=== PATIENT | male | born 1985 | race African-American/Black ===

== ENCOUNTER 2025-01-05 10:24 | Outpatient (AMB) | payer BC, SELFPAY ==
--- OUTSIDE RECORDS SUMMARY | 2024-11-26 05:00 | XMS_ITS ---
Author Organization [facility] Address [address] [facility] [address] [place] [address] Care Team Providers Care Plastic Process Technician Name Role Phone KATHRYN MCKINNON Primary Care Provider Arcenio Pope Unavailable [phone] Allergies Allergen (clinical drug ingredient) Drug/Non Drug Allergy documented on EMR Reaction Allergy Type Onset Date Status Seasonal IC Unknown Drug Allergy Activ e Results Component Value Reference Range Notes CBC with Diff, Platelet, NLR -[id number] Reviewed date:01/04/2025 09:17:35 AM Interpretation: Performing Lab:[facility], [address] [facility], [place], Phone - [phone], Director - Kevin Notes/Report: WBC 8.7 3.4-10.8 [...] 0.0-0.1 x10E3/uL Lipid Panel With LDL/HDL Rat [id number] Reviewed date:01/04/2025 09:17:41 AM Interpretation: Performing Lab:[facility] [place], [address] [facility], [place], Phone - [phone], Director - Kevin Notes/Report: Cholesterol, Total 144 100-199 mg/dL Triglycerides 143 0-149 mg/dL HDL Cholesterol 60 >39 mg/dL VLDL Cholesterol Martin 24 5-40 mg/dL LDL Chol Calc (NIH) 60 0-99 mg/dL LDL/HDL Ratio 1.0 0.0-3.6 ratio LDL/HDL Ratio Men Women 1/2 Avg.Risk 1.0 1.5 Avg.Risk 3.6 3.2 2X Avg.Risk 6.2 5.0 3X Avg.Risk 8.0 6.1 Comp. Metabolic Panel (13)-[id number] Reviewed date:01/04/2025 09:17:48 AM Interpretation: Performing Lab:[facility], [address] [facility], [place], Phone - [phone], Director - Kevin Notes/Report: Glucose 111 70-99 [...] 2 Sebaceous cyst (L72. 3) Referral Organization [facility] Referring Provider First Name Arcenio Referring Provider Last Name Luxarpan Referring Provider Speciality Internal M edicine Referred Provider Specialty Surgery General Notes Please call the the medical center ent to schedule the appointment, Encounter created [...] 11/26/2024 Encounters Encounter Location Date Provider Diagnosis [facility] [address] [address] 11/26/2024 Arcenio Pope Encounter for screen ing [...] Up: 3 Weeks cpe, Reas on: Provider Name:Arcenio Pope, 1 08:30:00 AM, [address] [place] [address], [phone], Progress Notes * JOHN LorneOB:1985 (39 yo M)Acc No.[id number]:11/26/2024 Progress Notes Patient: Gil MOORE Provider: Evan Pope, :1985 A ge:39 Y S ex:Male Date:11/26/2024 Phone: Address:[address] [place], [place] [id number] Pcp:KATHRYN MCKINNON Subjective: * Chief Complaints: * [...] is denying any injury. 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 He smokes 4 cigarettes a day and also smokes marijuana after work. He does not have any anxiety or depression. He does not have any GI or symptoms. * ROS: G eneral/Constitutional: Patient complaining of c ystic mass on the forehead. O [employer] G o[facility]. C hange in appetite d [...] in his own gym. 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 * Medications: N one * Allergies: S [...] MALE GENITOURINARY: _ _. PODIATRIC: N ormal. Rn Care Transition _ ____. Assessment: * Assessment: 1. S [...] disorders L AB: CBC with Diff, Platelet, NLR-[id number] (Collection Date & Time - 01/03/2025 01:36 PM) L AB: Lipid Panel With LDL/HDL Ratio-[id number] (Collection Date & Time - 01/03/2025 01:36 PM) L AB: Comp. Metabolic Panel [id number] (Collection Date & Time - 01/03/2025 01:36 PM) 3. E pidermal cyst I maging: US Soft Tissue Head Neck Referral To:Surgery Reason:for had large cystic lesion to be aspirated of Please evaluate and treat * Follow Up: 3 Weeks cpe * Images: * Electronic signature of Karel Pope on 01/05/2025 at 12:55 PM EDT Sign off status: Pending * Provider: Evan Pope, Date: 0 11/26/2024 Generated for Mayte johnson/Yolande/Panfiloitting on: 01/05/2025 12:55 PM EDT History and Physical Notes * [...] is denying any injury. 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
--- NOTE | 2025-01-05 10:34 | A.OFFVIS_ITS ---
Vital Signs 01/05/25 10:40 Height 6 ft 1 in Weight 176 lb 8 oz BMI 23.3 Intake Visit Reasons: sebaceaous cyst Intake Note: This patient was referred by Arcenio Pope for an assessment for sebaceous cyst on the forehead. Pt c/o; reports no pain, reports no dizziness, reports no headaches. Supervisor Electronic Coils Required: No Accompanied by: Self / Same As Patient Allergies Seasonal Allergies Allergy (Verified 01/05/25 10:41) Unknown Medication List - Last Reconciled 01/05/25 by Luis Alberto Dudley MD No Known Home Meds HPI HPI sebaceaous cyst: Details: 39-year-old male referred for a lump on her forehead. He said he has noticed this for about 4 years now. This has been increasing in size. He denies any skin changes. In view of the increased in size, he wants this removed. [facility] Medical History (Updated 01/05/25 @ 10:47 by Luis Alberto Dudley MD) Lipoma of forehead Surgical History No pertinent past surgical history Social History Patient Tobacco Use Status: Tobacco use Unknown Review of Systems Const Denies chills and Denies fever(s) Card Denies chest pain, Denies dyspnea and Denies dyspnea on exertion Resp Denies cough, Denies dyspnea and Denies dyspnea on exertion GI Denies hematochezia and Denies change in bowel habits Denies hematuria and Denies difficulty urinating Musc Denies back pain and Denies limited range of motion Neuro Denies focal weakness and Denies convulsions Psych Denies depression and Denies mood swings Physical Exam Const General: comfortable and no acute distress Orientation/consciousness: patient oriented x3 HEENT Other: Lipomatous mass on the forehead, well-defined, mobile, about 4 cm in diameter Neck Neck: Yes no lymphadenopathy Resp Auscultation: clear to auscultation bilaterally Cardio Rhythm: regular rhythm GI Palpation (GI): Soft to palpation, nontender and no guarding Neuro General: patient oriented x3 Assessment & Plan Assessment & Plan (1) Lipoma of forehead: Code(s): D17.0 - Benign lipomatous neoplasm of skin and subcutaneous tissue of head, face and neck Category: Medical Plan I explained the technique of excision of the forehead lipoma under local anesthesia. I reviewed the risks including but not limited to bleeding, infections, scar formation and poor healing, as well as the benefits and alternatives He says he understands and wants to proceed. He will be brought back in for excision of the forehead lipoma under local anesthesia in the office on his next visit. He understands what to expect postoperatively. Coding Level of Care Code New Pt Level 3 (60496) Diagnoses Lipoma of forehead D17.0
[2025-01-05 10:40] VITALS: BMI 23.3
--- OUTSIDE RECORDS SUMMARY | 2025-01-05 12:55 | XMS_ITS | Patient Health Record ---
Author Organization [facility] Address [address] [facility] [address] [place] [address] Care Team Providers Care Pediatric Dietician Name Role Phone KATHRYN MCKINNON Primary Care Provider LuxarpanArcenio Unavailable [phone] Allergies Allergen (clinical drug ingredient) Drug/Non Drug Allergy documented on EMR Reaction Allergy Type Onset Date Status Seasonal IC Unknown Drug Allergy Activ e Results Component Value Reference Range Notes CBC with Diff, Platelet, NLR -[id number] Reviewed date:01/04/2025 09:17:35 AM Interpretation: Performing Lab:[facility], [address] [facility], [place], Phone - [phone], Director - Kevin Notes/Report: WBC 8.7 3.4-10.8 [...] 0.0-0.1 x10E3/uL Lipid Panel With LDL/HDL Rat [id number] Reviewed date:01/04/2025 09:17:41 AM Interpretation: Performing Lab:[facility], [address] [facility], [place], Phone - [phone], Director - Kevin Notes/Report: Cholesterol, Total 144 100-199 mg/dL Triglycerides 143 0-149 mg/dL HDL Cholesterol 60 >39 mg/dL VLDL Cholesterol Martin 24 5-40 mg/dL LDL Chol Calc (NIH) 60 0-99 mg/dL LDL/HDL Ratio 1.0 0.0-3.6 ratio LDL/HDL Ratio Men Women 1/2 Avg.Risk 1.0 1.5 Avg.Risk 3.6 3.2 2X Avg.Risk 6.2 5.0 3X Avg.Risk 8.0 6.1 Comp. Metabolic Panel (13)-[id number] Reviewed date:01/04/2025 09:17:48 AM Interpretation: Performing Lab:[facility], [address] [facility], [place], Phone - [phone], Director - Kevin Notes/Report: Glucose 111 70-99 [...] 2 Sebaceous cyst (L72. 3) Referral Organization [facility] Referring Provider First Name Arcenio Referring Provider Last Name Luxarpan Referring Provider Speciality Internal M edicine Referred Provider Specialty Surgery General Notes Please call the [facility] ent to schedule the appointment, Encounter created and SMS sent to the pt., Prabha Paulino 11/29/2024 04:16:01 PM > Referral Priority Routine Immunizations Vaccine Route Administration Date Status Comme nts COVID 19 Pfizer Unknown 04/26/2021 Administered COVID 19 Pfizer Unknown 05/17/2021 Administered Vital Signs Heart Rate 76 /min 11/26/2024 Temperature 97.3 degrees Fahrenheit 11/26/2024 Blood pressure diastolic 78 mm Hg 11/26/2024 Oximetry 97 % 11/26/2024 Height 6'1'' in 11/26/2024 Blood pressure systolic 120 mm Hg 11/26/2024 Weight 176.0 lbs 11/26/2024 BMI 23.22 kg/m2 11/26/2024 Encounters Encounter Location Date Provider Diagnosis [address] [address] 11/26/2024 Arcenio Pope Encounter for screen ing for cardiovascular disorders Z13.6 ; Sebaceous cyst L72.3 ; Epidermal cyst L72.0 ; Tobacco dependence F17.200 and Tobacco abuse counseling Z71.[address] [address] 11/29/2024 Arcenio Pope Assessments Encounter Date Diagnosis (ICD Code) Assessment Notes Treatment Notes Treatment Clinical Notes Section Notes 11/26/2024 Sebaceous cyst (ICD-10 - L72.3) 39-year-old [...] modalities Screening blood work slip given 11/26/2024 Encounter for screening for cardiovascular disorders [...] Date US Soft Tissue Head Neck 11/26/2024 Next Appt Details Provider Name:Arcenio Pope, Sarah 08:30:00 AM, [address] [place] [address], [phone], Insurance Providers Payer Name Payer Address Payer Phone Subscriber Number Group Number Insured Name Patient Relationship to Insured Coverage Start Date Coverage End Date Gisele Breaux [address] [place] [address] [id number] Gil Ag Self - patient is the insured Gisele [facility] [address] [place] [address] [id number] Gil Ag Self - patient is the insured Medical (General) History Medical History History ICD Code tobacco dependence Epidermal/sebaceous cyst forehead Surgical History Surgery Date(Month/Year) none
--- OUTSIDE RECORDS SUMMARY | 2025-01-05 12:55 | XMS_ITS | Clinical Summary ---
Author Organization [facility] Address [address] [place] [address] Phone Care Team Providers Care Rubberizing Mechanic Name Role Phone Arcenio Pope MD Primary Care Provider [phone] Allergies No known active allergies Encounters Date Type Department Care Team Description 12/22/2024 10:43 AM EDT - 12/22/2024 11:54 AM EDT Emergency [facility] Emergency [address] [place] [address] Mayra Christensen MD Abscess, jawline (Primary Dx) Discharge Disposition: Home or Self Care from Last 3 Months Social History Tobacco Use Types Packs/Day Years Used Date Smoking Tobacco: Never Assessed Sex and Gender Information Value Date Recorded Sex Assigned at Not on file Legal Sex Male 6:27 PM EST Gender Identity Not on file Sexual Orientation Not on file Last Filed Vital Signs Vital Sign Reading Time Taken Comments Blood Pressure 154/99 12/22/2024 10:22 AM EDT Pulse 85 12/22/2024 10:21 AM EDT Temperature 37 C (98.6 F) 12/22/2024 10:21 AM EDT Respiratory Rate 16 12/22/2024 10:21 AM EDT Oxygen Saturation 100% 12/22/2024 10:21 AM EDT Inhaled Oxygen Concentration - - Weight 79.4 kg (175 lb) 12/22/2024 10:22 AM EDT Height 185.4 cm (6' 1 ) 12/22/2024 10:22 AM EDT Body Mass Index 23.09 12/22/2024 10:22 AM EDT Plan of Treatment Health Maintenance Due Date Last Done Comments DTaP,Tdap,and Td Vaccines (1 - Tdap) 2005 Hepatitis B Vaccines (1 of 3 - 19+ 3-dose series) 2005 Depression Screening 04/14/2024 COVID-19 Vaccine (3 - 2024-2 6 season) 2024 05/17/2021, 04/26/2021 Influenza Vaccine (#1) 2024 Cholesterol Screening (Lipid Panel) 12/22/2024 HIV Screening 12/22/2024 Hepatitis C Screening 12/22/2024 Social Influencers of Health Screening 12/22/2024 HIB Vaccines Aged Out No longer eligi ble based on patient's age to complete this topic HPV Vaccines Aged Out No longer eligi ble based on patient's age to complete this topic Hepatitis A Vaccines Aged Out No long er eligible based on patient's age to complete this topic IPV Vaccines Aged Out No longer eligi ble based on patient's age to complete this topic MMR Vaccines Aged Out No longer eligi ble based on patient's age to complete this topic Meningococcal ACWY Vaccine Aged Out N o longer eligible based on patient's age to complete this topic Meningococcal B Vaccine Aged Out No l onger eligible based on patient's age to complete this topic Pneumococcal Vaccine: Pediatrics (0 to 5 Years) and At-Risk Patients (6 to 49 Years) Aged Out No longer eligible b ased on patient's age to complete this topic RSV Immunization Patients Under 20 months Aged Out No longer eligible b ased on patient's age to complete this topic Varicella Vaccines Aged Out No longer eligible based on patient's age to complete this topic Procedures Procedure Name Priority Date/Time Associated Diagnosis Comments HC I&D/EXCISION/BIOPSY BONE MARROW/TISSUE/TUMOR /HTOMA/ABSC/CYST LEVEL 1 Routine 12/22/2024 1:24 PM EDT DC INCISION & DRAINAGE ABSCESS SIMPLE/SINGLE Routine 12/22/2024 1:24 PM EDT from Last 3 Months Results * DC INCISION & DRAINAGE ABSCESS SIMPLE/SINGLE, HC I&D/EXCISION/BIOPSY BONE MARROW/TISSUE/TUMOR/HTOMA/ABSC/CYST LEVEL 1 (12/22/2024 1:24 PM EDT) Narrative Mayra Christensen MD - 12/22/2024 1:24 PM EDT Mayra Christensen MD 12/22/2024 1:26 PM Incision and Drainage Date/Time: 12/22/2024 1:24 PM Performed by: Mayra Christensen MD Authorized by: Mayra Christensen MD Consent: Consent obtained: Verbal Consent given by: Patient Risks discussed: Bleeding, incomplete drainage, pain and damage to other organs Alternatives discussed: No treatment [place] protocol: Patient identity confirmed: Verbally with patient Location: Type: Abscess Size: 5x4 cm Location: Head Head location: Face (L jawline) Pre-procedure details: Skin preparation: Chlorhexidine Sedation: Sedation type: None Anesthesia: Anesthesia method: Local infiltration Local anesthetic: Lidocaine 1% w/o epi (3 cc) Procedure type: Complexity: Simple Procedure details: Ultrasound guidance: no Needle aspiration: no Incision types: Single straight Incision depth: Dermal Wound management: Probed and deloculated and irrigated with saline Drainage: Purulent Drainage amount: Copious Wound treatment: Wound left open Packing materials: None Post-procedure details: Procedure completion: Tolerated well, no immediate complications Mayra Christensen MD IN CLINIC/BEDSIDE ORDERABLES Fin al Result from Last 3 Months Insurance [facility]) Member Subscriber Plan / Payer (Ef fective 2024-Present) Name:LIS AG Member ID:[id number] Relation to Subscriber:Self Name:Lis Ag III Subscriber ID:[id number] Payer ID:[id number] Type:Not on file Address: [address] [address] Care Teams Rubberizing Mechanic Relationship Specialty Start Date End Date Arcenio Pope MD [address] [facility] [address] [place] [address] PCP - General Internal Medicine 12/22/24
== END 2025-01-05 10:46 | disposition home or self-care (01) ==
LOC: HO.HGS 10:25
PROVIDERS: PCP Internal Medicine; Visit Provider Surgery
DX: D17.0 Benign lipomatous neoplasm of skin and subcutaneous tissue of head, face and neck (principal)
CPT/HCPCS: 99203

== ENCOUNTER 2025-02-09 14:49 | Outpatient (AMB) | payer BC, SELFPAY ==
--- OUTSIDE RECORDS SUMMARY | 2024-11-26 05:00 | XMS_ITS ---
Author Organization [facility] Address [address] [facility] [address] [place] [address] Care Team Providers Care Elder Assistant Name Role Phone KATHRYN MCKINNON Primary Care Provider Arcenio Pope Unavailable [phone] Allergies Allergen (clinical drug ingredient) Drug/Non Drug Allergy documented on EMR Reaction Allergy Type Onset Date Status Seasonal IC Unknown Drug Allergy Activ e Results Component Value Reference Range Notes CBC with Diff, Platelet, NLR -[id number] Reviewed date:01/04/2025 09:17:35 AM Interpretation: Performing Lab:[facility], [address] [facility], [place], Phone - [phone], Director - Kevin Notes/Report: WBC 8.7 3.4-10.8 [...] 0.0-0.1 x10E3/uL Lipid Panel With LDL/HDL Rat [id number] Reviewed date:01/04/2025 09:17:41 AM Interpretation: Performing Lab:[facility] [place], [address] [facility], [place], Phone - [phone], Director - Kevin Notes/Report: Cholesterol, Total 144 100-199 mg/dL Triglycerides 143 0-149 mg/dL HDL Cholesterol 60 >39 mg/dL VLDL Cholesterol Martin 24 5-40 mg/dL LDL Chol Calc (NIH) 60 0-99 mg/dL LDL/HDL Ratio 1.0 0.0-3.6 ratio LDL/HDL Ratio Men Women 1/2 Avg.Risk 1.0 1.5 Avg.Risk 3.6 3.2 2X Avg.Risk 6.2 5.0 3X Avg.Risk 8.0 6.1 Comp. Metabolic Panel ([id number] Reviewed date:01/04/2025 09:17:48 AM Interpretation: Performing Lab:[facility], [address] [facility], [place], Phone - [phone], Director - Kevin Notes/Report: Glucose 111 70-99 [...] 2 Sebaceous cyst (L72. 3) Referral Organization [facility] Referring Provider First Name Arcenio Referring Provider [...] 11/26/2024 Encounters Encounter Location Date Provider Diagnosis [facility] [address] [address] 11/26/2024 Arcenio Pope Encounter for screen ing [...] on: Provider Name:Antonio antony, 02/17/2025 02:30:00 PM, [address] [place] [address], [phone], Progress Notes * Manny AGPamelaOB:1985 (39 yo M)Acc No.[id number]:11/26/2024 Progress Notes Patient: Gil MOORE Provider: Evan Pope, :1985 A ge:39 Y S ex:Male Date:11/26/2024 Phone: Address:[address] [place], [place] [id number] Pcp:KATHRYN MCKINNON Subjective: * Chief Complaints: * [...] is denying any injury. 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 He smokes 4 cigarettes a day and also smokes marijuana after work. He does not have any anxiety or depression. He does not have any GI or symptoms. * ROS: G eneral/Constitutional: Patient complaining of c ystic mass on the forehead. [facility] [employer] G o[facility]. C hange in appetite d [...] in his own gym. 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 * Medications: N one * Allergies: S [...] MALE GENITOURINARY: _ _. PODIATRIC: N ormal. Termite Control Representative _ ____. Assessment: * Assessment: 1. S [...] disorders L AB: CBC with Diff, Platelet, NLR-[id number] (Collection Date & Time - 01/03/2025 01:36 PM) L AB: Lipid Panel With LDL/HDL Ratio-[id number] (Collection Date & Time - 01/03/2025 01:36 PM) L AB: Comp. Metabolic Panel [id number] (Collection Date & Time - 01/03/2025 01:36 PM) 3. E pidermal cyst I maging: US Soft Tissue Head Neck Referral To:Surgery Reason:for had large cystic lesion to be aspirated of Please evaluate and treat * Follow Up: 3 Weeks cpe * Images: * Electronic signature of Karel Pope on 02/09/2025 at 07:11 PM EDT Sign off status: Pending * Provider: Evan Pope, Date: 0 11/26/2024 Generated for Mayte johnson/Yolande/Panfiloitting on: 1 07:11 PM EDT History and Physical Notes * HPI (History [...] is denying any injury. 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
--- NOTE | 2025-02-09 15:14 | A.OFFVIS_ITS ---
Intake Visit Reasons: excise cyst forehead Intake Note: Office procedure: excision cyst forehead Information Systems Security Analyst Required: No Accompanied by: Self / Same As Patient Allergies Seasonal Allergies Allergy (Verified 02/09/25 15:15) Unknown HPI HPI excise cyst forehead: Details: He is here for excision of a lipoma from the forehead. [facility] Medical History Lipoma of forehead Surgical History No pertinent past surgical history Social History Patient Tobacco Use Status: Tobacco use Unknown Office Procedures Excision Details: He was he is in supine position. The area of the lipoma was prepped and draped. Lidocaine 1% was used for local anesthesia. I made a transverse incision in the skin overlying the lipoma with a blade 15. This carried down sharply through the full-thickness of the skin and thick subcutaneous fat until was able to visualize the lipoma. I sharply dissected the lipoma off of the rest of the subcutaneous layer using Metzenbaum scissors until this was circumferentially dissected. This was delivered and sent as a specimen Lipoma measured 4 x 4 cm I closed the incision with full-thickness nylon 3-0 simple interrupted sutures. Dressings were applied. The procedure was completed The patient tolerated procedure well. There were no immediate complications. There was minimal blood loss. The area was hemostatic postop. He was given wound care instructions. [id number]-[id number] scalp/neck/hands/feet/genitalia >4cm Procedure code (CPT) selection complete Assessment & Plan Assessment & Plan (1) Lipoma of forehead: Code(s): D17.0 - Benign lipomatous neoplasm of skin and subcutaneous tissue of head, face and neck Category: Medical Plan: Excision was done in the office. He tolerated the procedure well. There were no immediate complications. I will see him in the office next week to remove the sutures. Can take Tylenol and ibuprofen for pain as needed. Coding Level of Care Code Procedure Only Diagnoses Lipoma of forehead D17.0 CPT Codes Scalp/Neck/Hands/Feet/Genetalia - CPT: 85066-[id number] scalp/neck/hands/feet/genitalia >4cm ([id number])
--- OUTSIDE RECORDS SUMMARY | 2025-02-09 19:12 | XMS_ITS | Clinical Summary ---
Author Organization [facility] Address [address] [place] [address] Phone Care Team Providers Care Cement Finishing Supervisor Name Role Phone Arcenio Pope MD Primary Care Provider [phone] Allergies No known active allergies Encounters Date Type Department Care Team Description 12/22/2024 10:43 AM EDT - 12/22/2024 11:54 AM EDT Emergency [facility] Emergency [address] [place] [address] Mayra Christensen MD Abscess, jawline [...] of 3 - 19+ 3-dose series) 2005 HPV Vaccines (1 - 3-dose SCD M series) 2013 Depression Screening 04/14/2024 COVID-19 Vaccine (3 - 2024-2 6 season) 2024 05/17/2021, 04/26/2021 Influenza Vaccine (#1) 2024 Cholesterol Screening (Lipid Panel) 12/22/2024 HIV Screening 12/22/2024 Hepatitis C Screening 12/22/2024 Social Influencers of Health Screening 12/22/2024 RSV Immunization Adult Patients (1 - 1-dose 75+ series) 2061 HIB Vaccines Aged Out No longer eligi [...] LEVEL 1 Routine 12/22/2024 1:24 PM EDT MD INCISION & DRAINAGE ABSCESS SIMPLE/SINGLE Routine 12/22/2024 1:24 PM EDT from Last 3 Months Results * MD INCISION & DRAINAGE ABSCESS SIMPLE/SINGLE, HC I&D/EXCISION/BIOPSY [...] to other organs Alternatives discussed: No treatment [place] protocol: Patient identity confirmed: Verbally with patient [...] al Result from Last 3 Months Insurance [facility]) Care Teams Cement Finishing Supervisor Relationship Specialty Start Date End Date Arcenio Pope MD [address] [facility] [address] [place] [address] PCP - General Internal Medicine 12/22/24
--- OUTSIDE RECORDS SUMMARY | 2025-02-09 19:12 | XMS_ITS | Patient Health Record ---
Author Organization [facility] Address [address] [facility] [address] [place] [address] Care Team Providers Care Performance Improvement Analyst Name Role Phone KATHRYN MCKINNON Primary Care Provider LuxarpanArcenio Unavailable [phone] Allergies Allergen (clinical drug ingredient) Drug/Non Drug Allergy documented on EMR Reaction Allergy Type Onset Date Status Seasonal IC Unknown Drug Allergy Activ e Results Component Value Reference Range Notes CBC with Diff, Platelet, NLR -[id number] Reviewed date:01/04/2025 09:17:35 AM Interpretation: Performing Lab:[facility], [address] [facility], [place], Phone - [phone], Director - Kevin Notes/Report: WBC 8.7 3.4-10.8 [...] 0.0-0.1 x10E3/uL Lipid Panel With LDL/HDL Rat [id number] Reviewed date:01/04/2025 09:17:41 AM Interpretation: Performing Lab:[facility], [address] [facility], [place], Phone - [phone], Director - Kevin Notes/Report: Cholesterol, Total 144 100-199 mg/dL Triglycerides 143 0-149 mg/dL HDL Cholesterol 60 >39 mg/dL VLDL Cholesterol Martin 24 5-40 mg/dL LDL Chol Calc (NIH) 60 0-99 mg/dL LDL/HDL Ratio 1.0 0.0-3.6 ratio LDL/HDL Ratio Men Women 1/2 Avg.Risk 1.0 1.5 Avg.Risk 3.6 3.2 2X Avg.Risk 6.2 5.0 3X Avg.Risk 8.0 6.1 Comp. Metabolic Panel ([id number] Reviewed date:01/04/2025 09:17:48 AM Interpretation: Performing Lab:[facility], [address] [facility], [place], Phone - [phone], Director - Kevin Notes/Report: Glucose 111 70-99 [...] 2 Sebaceous cyst (L72. 3) Referral Organization [facility] Referring Provider First Name Arcenio Referring Provider Last Name Luxarpan Referring Provider Speciality Internal M edicine Referred Provider Specialty Surgery General Notes Please call the [facility] ent to schedule the appointment, Encounter created [...] 11/26/2024 Encounters Encounter Location Date Provider Diagnosis [address] [address] 11/26/2024 Arcenio Pope Encounter for screen ing for cardiovascular disorders Z13.6 ; Sebaceous cyst L72.3 ; Epidermal cyst L72.0 ; Tobacco dependence F17.200 and Tobacco abuse counseling Z71.[address] [address] 11/29/2024 Arcenio Pope Assessments Encounter Date Diagnosis [...] Treatment Pending Test Test Name Order Date Soft Tissue Head Neck 11/26/2024 Next Appt Details Provider Name:Antonio antony, 02/17/2025 02:30:00 PM, [address], [address], Insurance Providers Payer Name Payer Address Payer Phone Subscriber Number Group Number Insured Name Patient Relationship to Insured Coverage Start Date Coverage End Date Gisele Breaux [address] [place] [address] [id number] Gil Ag Self - patient is the insured Gisele [facility] [address] [place] [address] [id number] Gil Ag Self - patient is the insured Medical (General) History Medical History History ICD Code tobacco dependence Epidermal/sebaceous cyst forehead Surgical History Surgery Date(Month/Year) none
== END 2025-02-09 15:41 | disposition home or self-care (01) ==
LOC: HO.HGS 14:49
PROVIDERS: PCP Internal Medicine; Visit Provider Surgery
DX: D17.0 Benign lipomatous neoplasm of skin and subcutaneous tissue of head, face and neck (principal)
CPT/HCPCS: 11426

== ENCOUNTER 2025-02-09 14:49 | Outpatient (REF) | payer BC, SELFPAY | END 2025-02-09 14:50 | disposition home or self-care (01) | LOC: HO.LNP 14:49 | PROVIDERS: PCP Internal Medicine; Visit Provider Surgery | DX: D17.0 Benign lipomatous neoplasm of skin and subcutaneous tissue of head, face and neck (principal) | CPT/HCPCS: 88304 ==

== ENCOUNTER 2025-02-16 15:01 | Outpatient (AMB) | payer BC, SELFPAY ==
--- OUTSIDE RECORDS SUMMARY | 2024-11-26 04:00 | XMS_ITS ---
Author Organization [email or web address] Address [address] [facility] [address] [place] [address] Care Team Providers Care Green Chain Puller Name Role Phone KATHRYN MCKINNON Primary Care Provider Arcenio Pope Unavailable [phone] Allergies Allergen (clinical drug ingredient) Drug/Non Drug Allergy documented on EMR Reaction Allergy Type Onset Date Status Seasonal IC Unknown Drug Allergy Activ e Results Component Value Reference Range Notes CBC with Diff, Platelet, NLR -[id number] Reviewed date:01/04/2025 09:17:35 AM Interpretation: Performing Lab:[facility], [address] [facility], [place], Phone - [phone], Director - Kevin Notes/Report: WBC 8.7 3.4-10.8 [...] 0.0-0.1 x10E3/uL Lipid Panel With LDL/HDL Rat [id number] Reviewed date:01/04/2025 09:17:41 AM Interpretation: Performing Lab:[facility] [place], [address] [facility] [place], Phone - [phone], Director - Kevin Notes/Report: Cholesterol, Total 144 100-199 mg/dL Triglycerides 143 0-149 mg/dL HDL Cholesterol 60 >39 mg/dL VLDL Cholesterol Martin 24 5-40 mg/dL LDL Chol Calc (NIH) 60 0-99 mg/dL LDL/HDL Ratio 1.0 0.0-3.6 ratio LDL/HDL Ratio Men Women 1/2 Avg.Risk 1.0 1.5 Avg.Risk 3.6 3.2 2X Avg.Risk 6.2 5.0 3X Avg.Risk 8.0 6.1 Comp. Metabolic Panel ([id number] Reviewed date:01/04/2025 09:17:48 AM Interpretation: Performing Lab:[facility], [address] [facility], [place], Phone - [phone], Director - Kevin Notes/Report: Glucose 111 70-99 [...] 2 Sebaceous cyst (L72. 3) Referral Organization [facility] Referring Provider First Name Arcenio Referring Provider Last Name Toshia Referring Provider Speciality Internal M edicine Referred Provider Specialty Surgery General Notes Please call the [facility] ent to schedule the appointment, Encounter created and SMS sent to the pt., Prabha Paulino 11/29/2024 04:16:01 PM > Referral Priority Routine REASON FOR VISIT new patient-NPPW Scanned Vital Signs Temperature 97.3 degrees Fahrenheit 11/27/19 25 Blood pressure systolic 120 mm Hg 11/27/19 25 Blood pressure diastolic 78 mm Hg 025 Heart Rate 76 /min 11/26/2024 Height 6'1'' in 11/26/2024 Weight 176.0 lbs 11/26/2024 BMI 23.22 kg/m2 11/26/2024 Oximetry 97 % 11/26/2024 Encounters Encounter Location Date Provider Diagnosis [facility] [address] [address] 11/26/2024 Arcenio Pope Encounter for screen ing [...] Follow Up: 3 Weeks cpe, Reas on: Provider Name:Antonio antony, 02/17/2025 02:30:00 PM, [address] [place] [address], [phone], Progress Notes * Manny AGPamelaOB:1985 (39 yo M)Acc No.[id number]:11/26/2024 Progress Notes Patient: Gil MOORE Provider: Evan Pope, :1985 A ge:39 Y S ex:Male Date:11/26/2024 Phone: Address:[address] [place], [place] [phone] Pcp:KATHRYN MCKINNON Subjective: * Chief Complaints: * [...] is denying any injury. 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 He smokes 4 cigarettes a day and also smokes marijuana after work. He does not have any anxiety or depression. He does not have any GI or symptoms. * ROS: G eneral/Constitutional: Patient complaining of c ystic mass on the forehead. O [employer] G ood. C hange in appetite d [...] in his own gym. 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 * Medications: N one * Allergies: S [...] MALE GENITOURINARY: _ _. PODIATRIC: N ormal. Retail Management Keyholder _ ____. Assessment: * Assessment: 1. S [...] disorders L AB: CBC with Diff, Platelet, NLR-[id number] (Collection Date & Time - 01/03/2025 01:36 PM) L AB: Lipid Panel With LDL/HDL Ratio-[id number] (Collection Date & Time - 01/03/2025 01:36 PM) L AB: Comp. Metabolic Panel ([id number] (Collection Date & Time - 01/03/2025 01:36 PM) 3. E pidermal cyst I maging: US Soft Tissue Head Neck Referral To:Surgery Reason:for had large cystic lesion to be aspirated of Please evaluate and treat * Follow Up: 3 Weeks cpe * Images: * Electronic signature of Karel Pope on 02/16/2025 at 06:03 PM EST Sign off status: Pending * Provider: Evan Pope, Date: 0 11/26/2024 Generated for Mayte johnson/Yolande/Panfiloitting on: 04/18/2024 06:03 PM EST History and Physical Notes * [...] is denying any injury. 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
--- NOTE | 2025-02-16 15:14 | A.OFFVIS_ITS ---
Vital Signs 02/16/25 15:18 Height 6 ft 1 in Weight 176 lb 7.998 oz BMI 23.3 Intake Visit Reasons: s/p suture forehead removal Intake Note: This patient presents for a post-op assessment status post excision lipoma of forehead. (02/09/2025) Pt c/o; reports surgical site is still swollen, reports no other symptoms or concerns at this time. Bleach Plant Operator Required: No Accompanied by: Self / Same As Patient Allergies Seasonal Allergies Allergy (Verified 02/16/25 15:19) Unknown HPI HPI s/p suture forehead removal: Details: He underwent excision of a large lipoma from his forehead last February 10, 2025. He is here for removal of sutures. He does state that he then had swelling of the area that they after the procedure. He denies significant pain. [facility] Medical History Lipoma of forehead Surgical History S/P excision of lipoma (~02/09/25) No pertinent past surgical history Social History Patient Tobacco Use Status: Tobacco use Unknown Review of Systems Const Denies chills and Denies fever(s) Physical Exam Vital Signs: BMI result Body Mass Index 23.3 Const General: comfortable and no acute distress HEENT Other: Excision site well healed, not infected, sutures intact, however with note of a subcutaneous hematoma Assessment & Plan Assessment & Plan (1) Lipoma of forehead: Code(s): D17.0 - Benign lipomatous neoplasm of skin and subcutaneous tissue of head, face and neck Category: Medical Plan: Status post excision. His path report shows a lipoma I removed all his sutures He has had swelling on the area which I initially thought was is a seroma. However, I aspirated this with a gauge 21 needle and this turned out to be a hematoma so this could not be aspirated completely. I therefore instructed him to do warm compresses to the area to allow faster resorption of the hematoma. A I can do another wound check next week. Coding Level of Care Code Global (63177) Diagnoses Lipoma of forehead D17.0
[2025-02-16 15:18] VITALS: BMI 23.3
--- OUTSIDE RECORDS SUMMARY | 2025-02-16 18:03 | XMS_ITS | Clinical Summary ---
Author Organization [facility] Address [address] [place] [address] Phone Care Team Providers Care Vinyl Dipper Name Role Phone Arcenio Pope MD Primary Care Provider [phone] Allergies No known active allergies Encounters Date Type Department Care Team Description 12/22/2024 10:43 AM EDT - 12/22/2024 11:54 AM EDT Emergency [facility] Emergency [address] [place] [address] Mayra Christensen MD Abscess, jawline [...] LEVEL 1 Routine 12/22/2024 1:24 PM EDT ND INCISION & DRAINAGE ABSCESS SIMPLE/SINGLE Routine 12/22/2024 1:24 PM EDT from Last 3 Months Results * ND INCISION & DRAINAGE ABSCESS SIMPLE/SINGLE, HC I&D/EXCISION/BIOPSY [...] to other organs Alternatives discussed: No treatment [place] protocol: Patient identity confirmed: Verbally with patient [...] al Result from Last 3 Months Insurance [facility] ([facility] Care Teams Vinyl Dipper Relationship Specialty Start Date End Date Arcenio Pope MD [address] [facility] [address] [place] [address] PCP - General Internal Medicine 12/22/24
--- OUTSIDE RECORDS SUMMARY | 2025-02-16 18:04 | XMS_ITS | Patient Health Record ---
Author Organization [facility] Address [address] [facility] [address] [place] [address] Care Team Providers Care Billet Recorder Name Role Phone KATHRYN MCKINNON Primary Care Provider LuxarpanArcenio Unavailable [phone] Allergies Allergen (clinical drug ingredient) Drug/Non Drug Allergy documented on EMR Reaction Allergy Type Onset Date Status Seasonal IC Unknown Drug Allergy Activ e Results Component Value Reference Range Notes CBC with Diff, Platelet, NLR -[id number] Reviewed date:01/04/2025 09:17:35 AM Interpretation: Performing Lab:[facility], [address] [facility], [place], Phone - [phone], Director - Kevin Notes/Report: WBC 8.7 3.4-10.8 [...] 0.0-0.1 x10E3/uL Lipid Panel With LDL/HDL Rat [id number] Reviewed date:01/04/2025 09:17:41 AM Interpretation: Performing Lab:[facility], [address] [facility], [place], Phone - [phone], Director - Kevin Notes/Report: Cholesterol, Total 144 100-199 mg/dL Triglycerides 143 0-149 mg/dL HDL Cholesterol 60 >39 mg/dL VLDL Cholesterol Martin 24 5-40 mg/dL LDL Chol Calc (NIH) 60 0-99 mg/dL LDL/HDL Ratio 1.0 0.0-3.6 ratio LDL/HDL Ratio Men Women 1/2 Avg.Risk 1.0 1.5 Avg.Risk 3.6 3.2 2X Avg.Risk 6.2 5.0 3X Avg.Risk 8.0 6.1 Comp. Metabolic Panel (13)-[id number] Reviewed date:01/04/2025 09:17:48 AM Interpretation: Performing Lab:[facility], [address] [facility], [place], Phone - [phone], Director - Kevin Notes/Report: Glucose 111 70-99 [...] 2 Sebaceous cyst (L72. 3) Referral Organization [facility] Referring Provider First Name Arcenio Referring Provider Last Name Luxarpan Referring Provider Speciality Internal M edicine Referred Provider Specialty Surgery General Notes Please call the [facility] ent to schedule the appointment, [...] 11/26/2024 Encounters Encounter Location Date Provider Diagnosis [address] [address] 11/26/2024 Arcenio Pope Encounter for screen ing for cardiovascular disorders Z13.6 ; Sebaceous cyst L72.3 ; Epidermal cyst L72.0 ; Tobacco dependence F17.200 and Tobacco abuse counseling Z71.[address] [address] 11/29/2024 Arcenio Pope Assessments Encounter Date Diagnosis [...] Provider Name:Antonio antony, 02/17/2025 02:30:00 PM, [address], [address], Insurance Providers Payer Name Payer Address Payer Phone Subscriber Number Group Number Insured Name Patient Relationship to Insured Coverage Start Date Coverage End Date Gisele Breaux [address] [place] [address] [id number] Gil Ag Self - patient is the insured Gisele [facility] [address] [place] [address] [phone] [id number] Gil Ag Self - patient is the insured Medical (General) History Medical History History ICD Code tobacco dependence Epidermal/sebaceous cyst forehead Surgical History Surgery Date(Month/Year) none
== END 2025-02-16 15:34 | disposition home or self-care (01) ==
LOC: HO.HGS 15:01
PROVIDERS: PCP Internal Medicine; Visit Provider Surgery
DX: D17.0 Benign lipomatous neoplasm of skin and subcutaneous tissue of head, face and neck (principal)
CPT/HCPCS: 99024

== ENCOUNTER 2025-02-23 15:15 | Outpatient (AMB) | payer BC, SELFPAY ==
--- OUTSIDE RECORDS SUMMARY | 2024-11-26 04:00 | XMS_ITS ---
Author Organization [employer] Address [address] [facility] [address] [place] [address] Care Team Providers Care Technology Analyst Name Role Phone KATHRYN MCKINNON Primary Care Provider Arcenio Pope Unavailable [phone] Allergies Allergen (clinical drug ingredient) Drug/Non Drug Allergy documented on EMR Reaction Allergy Type Onset Date Status Seasonal IC Unknown Drug Allergy Activ e Results Component Value Reference Range Notes CBC with Diff, Platelet, NLR -[id number] Reviewed date:01/04/2025 09:17:35 AM Interpretation: Performing Lab:[facility], [address] [facility], [place], Phone - [phone], Director - Kevin Notes/Report: WBC 8.7 3.4-10.8 x10E3/uL RBC 3.98 4.14-5.80 x10E6/uL Hemoglobin 13.2 13.0-17.7 g/dL Hematocrit 39.0 37.5-51.0 % MCV 98 79-97 fL MCH 33.2 26.6-33.0 pg MCHC 33.8 31.5-35.7 g/dL RDW 11.0 11.6-15.4 % Platelets 233 150-450 x10E3/uL Neutrophils 71 Not Estab. % Lymphs 16 Not Estab. % Monocytes 11 Not Estab. % Eos 2 Not Estab. % Basos 0 Not Estab. % Neutrophils (Absolute) 6.0 1.4-7.0 x10E3/uL Lymphs (Absolute) 1.4 0.7-3.1 x10E3/uL Neut/Lymph Ratio 4.3 0.0-2.9 ratio Published COVID-19 studies suggest: Low likelihood of severe COVID-19 disease progression 0.0-2.9 High likelihood of severe COVID-19 disease progression >4.9 Monocytes(Absolute) 1.0 0.1-0.9 x10E3/uL Eos (Absolute) 0.2 0.0-0.4 x10E3/uL Baso (Absolute) 0.0 0.0-0.2 x10E3/uL Immature Granulocytes 0 Not Estab. % Immature Grans (Abs) 0.0 0.0-0.1 x10E3/uL Lipid Panel With LDL/HDL Rat [id number] Reviewed date:01/04/2025 09:17:41 AM Interpretation: Performing Lab:[facility] [place], [address] [facility], [place], Phone - [phone], Director - Kevin Notes/Report: Cholesterol, Total 144 100-199 mg/dL Triglycerides 143 0-149 mg/dL HDL Cholesterol 60 >39 mg/dL VLDL Cholesterol Martin 24 5-40 mg/dL LDL Chol Calc (NIH) 60 0-99 mg/dL LDL/HDL Ratio 1.0 0.0-3.6 ratio LDL/HDL Ratio Men Women 1/2 Avg.Risk 1.0 1.5 Avg.Risk 3.6 3.2 2X Avg.Risk 6.2 5.0 3X Avg.Risk 8.0 6.1 Comp. Metabolic Panel ([id number] Reviewed date:01/04/2025 09:17:48 AM Interpretation: Performing Lab:[facility], [address] [facility], [place], Phone - [phone], Director - Kevin Notes/Report: Glucose 111 70-99 mg/dL BUN 14 6-20 mg/dL Creatinine 1.16 0.76-1.27 mg/dL eGFR 83 >59 mL/min/1.73 BUN/Creatinine Ratio 12 9-20 Sodium 141 134-144 mmol/L Potassium 4.3 3.5-5.2 mmol/L Chloride 102 96-106 mmol/L Carbon Dioxide, Total 22 20-29 mmol/L Calcium 10.0 8.7-10.2 mg/dL Protein, Total 8.6 6.0-8.5 g/dL Albumin 4.9 4.1-5.1 g/dL Globulin, Total 3.7 1.5-4.5 g/dL Bilirubin, Total 1.2 0.0-1.2 mg/dL Alkaline Phosphatase 75 47-123 IU/L Pleas e note reference interval change AST (SGOT) 18 0-40 IU/L Reason For Referral Reason for had large cystic lesion to be aspirated of Please evaluate and treat Diagnosis 1 Epidermal cyst (L72. 0) Diagnosis 2 Sebaceous cyst (L72. 3) Referral Organization [facility] Referring Provider First Name Arcenio Referring Provider Last Name Luxarpan Referring Provider Speciality Internal M edicine Referred Provider Specialty Surgery General Notes Please call the [facility] ent to schedule the appointment, Encounter created and SMS sent to the pt., Prabha Paulino 11/29/2024 04:16:01 PM > Referral Priority Routine REASON FOR VISIT new patient-NPPW Scanned Vital Signs Temperature 97.3 degrees Fahrenheit 11/27/19 25 Oximetry 97 % 11/26/2024 Heart Rate 76 /min 11/26/2024 Blood pressure systolic 120 mm Hg 11/27/19 25 Blood pressure diastolic 78 mm Hg 025 Weight 176.0 lbs 11/26/2024 BMI 23.22 kg/m2 11/26/2024 Height 6'1'' in 11/26/2024 Encounters Encounter Location Date Provider Diagnosis [facility] [address] [address] 11/26/2024 Arcenio Pope Encounter for screen ing for cardiovascular disorders Z13.6 ; Sebaceous cyst L72.3 ; Epidermal cyst L72.0 ; Tobacco dependence F17.200 and Tobacco abuse counseling Z71.6 Assessments Encounter Date Diagnosis (ICD Code) Assessment Notes Treatment Notes Treatment Clinical Notes Section Notes 11/26/2024 Encounter for screening for cardiovascular disorders (ICD-10 - Z13.6) 39-year-old gentleman with history of tobacco dependence, marijuana use forhead cystic lesion is here today for a new PCP visit plan is following. Forhead a large cystic mass most likely epidermal or nor sebaceous cyst. Patient reported has been growing in size. Will refer her to a surgeon for aspiration. Currently does not appear to be infective and no evidence of any cellulitis. Will hold on imaging unless the surgeon recommends 1. Hypertension screening blood pressure stable 120/78 we will check a basic metabolic panel Hyperlipidemia screening check lipid profile Tobacco abuse and dependence counseling done offered nicotine replacement patient reported he already cut down to 4 cigarettes a day not interested in, or other modalities Screening blood work slip given 11/26/2024 Sebaceous cyst (ICD-10 - L72.3) 39-year-old gentleman with history of tobacco dependence, marijuana use forhead cystic lesion is here today for a new PCP visit plan is following. Forhead a large cystic mass most likely epidermal or nor sebaceous cyst. Patient reported has been growing in size. Will refer her to a surgeon for aspiration. Currently does not appear to be infective and no evidence of any cellulitis. Will hold on imaging unless the surgeon recommends 1. Hypertension screening blood pressure stable 120/78 we will check a basic metabolic panel Hyperlipidemia screening check lipid profile Tobacco abuse and dependence counseling done offered nicotine replacement patient reported he already cut down to 4 cigarettes a day not interested in, or other modalities Screening blood work slip given 11/26/2024 Epidermal cyst (ICD-10 - L72.0) 39-year-old gentleman with history of tobacco dependence, marijuana use forhead cystic lesion is here today for a new PCP visit plan is following. Forhead a large cystic mass most likely epidermal or nor sebaceous cyst. Patient reported has been growing in size. Will refer her to a surgeon for aspiration. Currently does not appear to be infective and no evidence of any cellulitis. Will hold on imaging unless the surgeon recommends 1. Hypertension screening blood pressure stable 120/78 we will check a basic metabolic panel Hyperlipidemia screening check lipid profile Tobacco abuse and dependence counseling done offered nicotine replacement patient reported he already cut down to 4 cigarettes a day not interested in, or other modalities Screening blood work slip given 11/26/2024 Tobacco dependence (ICD-10 - F17.200) 39-year-old gentleman with history of tobacco dependence, marijuana use forhead cystic lesion is here today for a new PCP visit plan is following. Forhead a large cystic mass most likely epidermal or nor sebaceous cyst. Patient reported has been growing in size. Will refer her to a surgeon for aspiration. Currently does not appear to be infective and no evidence of any cellulitis. Will hold on imaging unless the surgeon recommends 1. Hypertension screening blood pressure stable 120/78 we will check a basic metabolic panel Hyperlipidemia screening check lipid profile Tobacco abuse and dependence counseling done offered nicotine replacement patient reported he already cut down to 4 cigarettes a day not interested in, or other modalities Screening blood work slip given 11/26/2024 Tobacco abuse counseling (ICD-10 - Z71.6) 39-year-old gentleman with history of tobacco dependence, marijuana use forhead cystic lesion is here today for a new PCP visit plan is following. Forhead a large cystic mass most likely epidermal or nor sebaceous cyst. Patient reported has been growing in size. Will refer her to a surgeon for aspiration. Currently does not appear to be infective and no evidence of any cellulitis. Will hold on imaging unless the surgeon recommends 1. Hypertension screening blood pressure stable 120/78 we will check a basic metabolic panel Hyperlipidemia screening check lipid profile Tobacco abuse and dependence counseling done offered nicotine replacement patient reported he already cut down to 4 cigarettes a day not interested in, or other modalities Screening blood work slip given Plan Of Treatment Pending Test Test Name Order Date US Soft Tissue Head Neck 11/26/2024 Referrals Referral Date Details 11/26/2024 11/26/2024, for had large cystic lesion to be aspirated of Please evaluate and treat Next Appt Details Follow Up: 3 Weeks cpe, Reas on: Progress Notes * JOHNLorneOB:1985 (39 yo M)Acc No.[id number]:11/26/2024 Progress Notes Patient: Gil MOORE Provider: Evan Pope, :1985 A ge:39 Y S ex:Male Date:11/26/2024 Phone: Address:[address] [place], [place] [id number] Pcp:KATHRYN MCKINNON Subjective: * Chief Complaints: * 1 . new patient-NPPW Scanned. * HPI: D epression Screening: PHQ-9 L ittle interest or pleasure in doing things?Not at all F eeling down, depressed, or hopeless N ot at all T rouble falling or staying asleep, or sleeping too much N ot at all F eeling tired or having little energy N ot at all P oor appetite or overeating N ot at all F eeling bad about yourself or that you are a failure, or have let yourself or your family down N ot at all T rouble concentrating on things, such as reading the newspaper or watching television N ot at all M oving or speaking so slowly that other people could have noticed; or the opposite, being so fidgety or restless that you have been moving around a lot more than usual N ot at all T houghts that you would be better off or of hurting yourself in some way N ot at all T otal Score 0 i nternal medicine: 39-year-old gentleman with history of tobacco dependence marijuana use was last seen a PCP in more than 3 years is here today for a new PCP visit. Patient is complaining of a large cystic area on his forehead which has been going since last year. He has noticed it for more than 3 years initially was smaller in size but now it is almost 5-6 cm. He denies any pain. Patient is denying any injury. 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 He smokes 4 cigarettes a day and also smokes marijuana after work. He does not have any anxiety or depression. He does not have any GI or symptoms. * ROS: G eneral/Constitutional: Patient complaining of c ystic mass on the forehead. O [employer] G ood. C hange in appetite d enies. C hills d enies. F ever?denies. N ight sweats d enies. S leep disturbance d enies. W eight gain d enies. W eight loss d enies. N eurologic: Patient denies b alance difficulty, difficulty speaking, dizziness. D ifficulty speaking d enies. D izziness d enies. G ait abnormality?denies. H eadache d enies. L oss of strength d enies. M clarence loss d enies. S eizures d enies. T ingling/Numbness d enies . O phthalmologic: Blurred vision d enies. D ischarge d enies. D ry eye d enies. R ed eye d enies. E NT: Change in Voice D enies. C old Symptoms D enies.?Cough D enies. D izziness D enies. N marie Congestion D enies. O talgia?Denies. p ostnasal drip D enies. B locked ear d enies. N osebleed d enies. S noring d enies. C ardiovascular: Diaphoresis D enies. P edal Edema D enies. P ND (Paroxsymal nocturnal dyspnea) D enies. C hest pain d enies. D ifficulty laying flat d enies. D yspnea on exertion d enies. H eart murmur d enies. O rthopnea?denies. R espiratory: Asthma d enies. C ough d enies. S hortness of breath with exertion d enies. S putum production d enies. W heezing d enies. G astrointestinal: Change in bowel habits d enies. C onstipation d enies. D ecreased appetite d enies. D iarrhea d enies. H eartburn d enies. N ausea d enies. V omiting d enies. M usculoskeletal: tingling/numbness D enies. m yalgias D enies. J oint Swelling D enies. e xtremeties n ormal. A rthritis d enies. B ack problems d enies. C arpal tunnel d enies. J oint stiffness d enies. M uscle aches d enies. E ndocrine: Bowel Changes D enies. B reast Discharge D enies.?poor libido D enies. C old intolerance d enies. E xcessive sweating d enies.?Excessive thirst d enies. F requent urination d enies. T hyroid problems d enies. S kin: Bruising D enies. E czema d enies. H air changes d enies. R bill d enies. S kin lesion(s) d enies. P sychiatric: Anxiety d enies. D epressed mood d enies. D ifficulty sleeping d enies. N ervous breakdown d enies. S ubstance abuse d enies.? U rology: abnormal menstrual bleeding d enies. b lood in urine?denies. b urning on urination d enies. d ifficulty urinating d enies. d ischarge d enies. d ysuria d enies. * Medical History: T obacco dependence, Epidermal/sebaceous cyst forehead. * Surgical History: n one . * Family History: Father had emphysema and COPD. * Social History: chasidy flowers is single he has 2 kids he smokes 4 cigarettes a day and also smokes daily marijuana. He exercises in his own gym. 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 * Medications: N one * Allergies: S easonal IC. Objective: * Vitals: T emp:97.3F, Oxygen sat %:97%, HR:76/min, BP:120/78mm Hg, Wt:176.0lbs, BMI:23.22Index, Ht: 6'1''. * Examination: G eneral Examination: GENERAL APPEARANCE: W ell developed, well nourished, in no acute distress. MUSCULOSKELETAL: N ormal. HEAD: N ormocephalic, atraumatic large frontal forehead cystic mass appears to be fluid filled. No erythema no tenderness on exam. EYES: P upils equal, round, reactive to light and accommodation, sclera non-icteric. EARS: a uditory canal clear tympanic membrane intact, clear light reflex present . ORAL CAVITY: N ormal. THROAT: C lear. OROPHARYNX N ormal. SINUSES N ormal. NECK/THYROID: N cassidy supple, full range of motion, no cervical lymphadenopathy. SKIN: g ood turgor no suspicious lesions warm and dry normal hair distribution . HEART: S 1, S2 normal regular rate and rhythm no murmurs, rubs, gallops . LUNGS: c lear anteriorly and posteriorly good air movement no wheezes, rales, rhonchi . BREASTS: _ _. ABDOMEN: S oft, nontender, nondistended, bowel sounds present, . EXTREMITIES: N ormal. PERIPHERAL PULSES: N ormal. NEUROLOGIC: N onfocal, appropriate m otor strength normal upper and lower extremities, sensory exam intact. Psychiatry N ormal. FEMALE GENITOURINARY: _ _. MALE GENITOURINARY: _ _. PODIATRIC: N ormal. Cushion Installer _ ____. Assessment: * Assessment: 1. S ebaceous cyst - L72.3 (Primary) 2 . E ncounter for screening for cardiovascular disorders - Z13.6 3 . E pidermal cyst - L72.0 4 . T obacco dependence - F17.200 5 . T obacco abuse counseling - Z71.6 ? 39-year-old gentleman with h istory of tobacco dependence, marijuana use forhead cystic lesion is here today for a new PCP visit plan is following. Forhead a large cystic mass most likely epidermal or nor sebaceous cyst. Patient reported has been growing in size. Will refer her to a surgeon for aspiration. Currently does not appear to be infective and no evidence of any cellulitis. Will hold on imaging unless the surgeon recommends 1. Hypertension screening blood pressure stable 120/78 we will check a basic metabolic panel Hyperlipidemia screening check lipid profile Tobacco abuse and dependence counseling done offered nicotine replacement patient reported he already cut down to 4 cigarettes a day not interested in, or other modalities Screening blood work slip given Plan: * Treatment: 2. E ncounter for screening for cardiovascular disorders L AB: CBC with Diff, Platelet, NLR-[id number] (Collection Date & Time - 01/03/2025 01:36 PM) L AB: Lipid Panel With LDL/HDL Ratio-[id number] (Collection Date & Time - 01/03/2025 01:36 PM) L AB: Comp. Metabolic Panel ([id number] (Collection Date & Time - 01/03/2025 01:36 PM) 3. E pidermal cyst I maging: US Soft Tissue Head Neck Referral To:Surgery Reason:for had large cystic lesion to be aspirated of Please evaluate and treat * Follow Up: 3 Weeks cpe * Images: * Electronic signature of Karel Pope on 02/23/2025 at 06:31 PM EST Sign off status: Pending * Provider: Evan Pope, Date: 0 11/26/2024 Generated for Mayte johnson/Yolande/Panfiloitting on: 1 04/25/2024 06:31 PM EST History and Physical Notes * HPI (History of Present Illness) Category Sub-Category Detail Notes Category Not es Depression Screening PHQ-9 Little inte rest or pleasure in doing things: Not at all Feeling down, depressed, or hopeless: No t at all Trouble falling or staying asleep, or sl eeping too much: Not at all Feeling tired or having little energy: N ot at all Poor appetite or overeating: Not at all Feeling bad about yourself o r that you are a failure, or have let yourself or your family down: Not at all Trouble concentrating on thi ngs, such as reading the newspaper or watching television: Not at all Moving or speaking so slowly that other people could have noticed; or the opposite, being so fidgety or restless that you have been moving around a lot more than usual: Not at all Thoughts that you would be b italo off or of hurting yourself in some way: Not at all Total Score: 0 internal medicine 39-year-ol d gentleman with history of tobacco dependence marijuana use was last seen a PCP in more than 3 years is here today for a new PCP visit. Patient is complaining of a large cystic area on his forehead which has been going since last year. He has noticed it for more than 3 years initially was smaller in size but now it is almost 5-6 cm. He denies any pain. Patient is denying any injury. 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 He smokes 4 cigarettes a day and also smokes marijuana after work. He does not have any anxiety or depression. He does not have any GI or symptoms. Examination Category Sub-Category Detail Notes Category Not es General Examination GENERAL APPEARANCE: Well dev eloped, well nourished, in no acute distress HEAD: Normocephalic, atrau matic large frontal forehead cystic mass appears to be fluid filled. No erythema no tenderness on exam EYES: Pupils equal, round, reactive to light and accommodation, sclera non-icteric EARS: auditory canal clear tympanic membrane intact, clear light reflex present THROAT: Clear NECK/THYROID: Neck supple, full ra nge of motion, no cervical lymphadenopathy HEART: S1, S2 normal regula r rate and rhythm no murmurs, rubs, gallops LUNGS: clear anteriorly and posteriorly good air movement no wheezes, rales, rhonchi ABDOMEN: Soft, nontender, non distended, bowel sounds present, NEUROLOGIC: Nonfocal, appropriat e motor strength normal upper and lower extremities, sensory exam intact SKIN: good turgor no suspi cious lesions warm and dry normal hair distribution EXTREMITIES: Normal PERIPHERAL PULSES: Normal BREASTS: __ MUSCULOSKELETAL: Normal MALE GENITOURINARY: __ FEMALE GENITOURINARY: __ ORAL CAVITY: Normal PODIATRIC: Normal Psychiatry Normal OROPHARYNX Normal SINUSES Normal Cushion Installer Consultation Request Notes Referral Date Referring Provider Referred Provider Not manju 11/26/2024 Arcenio Pope , for had large c ystic lesion to be aspirated of Please evaluate and treat
--- OUTSIDE RECORDS SUMMARY | 2025-02-17 09:30 | XMS_ITS ---
Author Organization [facility] Address [address] [address] Care Team Providers Care Supervisor White Sugar Name Role Phone KATHRYN MCKINNON Primary Care Provider [phone] Antonio Arango Unavailable [phone] REASON FOR VISIT CPE Encounters Encounter Location Date Provider Diagnosis [facility] [address] [address] 02/17/2025 Antonio Arango Plan Of Treatment No Information Progress Notes * ANCELMOLorneOB:1985 (39 yo M)Acc No.[id number]:02/17/2025 Progress Notes Patient: Erasto BENITEZ Gil Appointment Provider: Erasto Arango :1985 A ge:39 Y S ex:Male Date:02/17/2025 Phone: Address:[address] [place], [place] [id number] Pcp:KATHRYN MCKINNON Subjective: * Chief Complaints: * 1 . CPE. * Medical History: Objective: * Vitals: Assessment: Plan: * Treatment: * Procedure Codes: N OSHO NO SHOW FEE * Images: * Electronic signature of Gauri Arango PA-C on 02/23/2025 at 06:31 PM EST Sign off status: Pending * Appointment Provider: Erasto Arango Date: 04/19/2024 Generated for Mayte johnson/Yolande/Sara on: 04/25/2024 06:31 PM EST
[2025-02-23 15:46] VITALS: BMI 23.1
--- NOTE | 2025-02-23 15:46 | A.OFFVIS_ITS ---
Vital Signs 02/23/25 15:46 Height 6 ft 1 in Weight 175 lb BMI 23.1 Intake Visit Reasons: 1 week follow up suture forehead removal Intake Note: Patient presents for one week wound check status post excision lipoma of forehead, hematoma. Pt c/o: reports wound is improving, reports he bought clear dressings and he developed a rash. Health Information Administrator Required: No Accompanied by: Self / Same As Patient Allergies Seasonal Allergies Allergy (Verified 02/23/25 15:47) Unknown HPI HPI 1 week follow up suture forehead removal: Details: He is here for follow-up after removal of the large lipoma from his forehead. He had a hematoma in the surgical site. He has been doing warm soaks and this seems to have been decreasing in size already he says. [facility] Medical History Lipoma of forehead Surgical History S/P excision of lipoma (~02/09/25) No pertinent past surgical history Social History Patient Tobacco Use Status: Tobacco use Unknown Review of Systems Const Denies chills and Denies fever(s) Physical Exam Vital Signs: BMI result Body Mass Index 23.1 Const General: comfortable and no acute distress HEENT Other: Hematoma on the surgical site, less compared to when I saw him last week Assessment & Plan Assessment & Plan (1) Lipoma of forehead: Code(s): D17.0 - Benign lipomatous neoplasm of skin and subcutaneous tissue of head, face and neck Category: Medical Plan: Status post excision. All sutures have been removed. The hematoma is decreasing in size. I eyes him to continue doing warm soaks to the area. I told him that I can see me in the office for a wound check in about a month. I explained to him that I anticipate the hematoma to be resorbed completely over time. Coding Level of Care Code Global (79093) Diagnoses Lipoma of forehead D17.0
--- OUTSIDE RECORDS SUMMARY | 2025-02-23 18:31 | XMS_ITS | Clinical Summary ---
Author Organization [facility] Address [address] [place] [address] Phone Care Team Providers Care Upholstered Goods Crafter Name Role Phone Arcenio Pope MD Primary Care Provider [phone] Allergies No known active allergies Encounters Date Type Department Care Team Description 12/22/2024 10:43 AM EDT - 12/22/2024 11:54 AM EDT Emergency [facility] Emergency [address] [place] [address] Mayra Crhistensen MD Abscess, jawline (Primary Dx) Discharge Disposition: [...] LEVEL 1 Routine 12/22/2024 1:24 PM EDT MT INCISION & DRAINAGE ABSCESS SIMPLE/SINGLE Routine 12/22/2024 1:24 PM EDT from Last 3 Months Results * MT INCISION & DRAINAGE ABSCESS SIMPLE/SINGLE, HC I&D/EXCISION/BIOPSY [...] to other organs Alternatives discussed: No treatment [place] protocol: Patient identity confirmed: Verbally with patient [...] al Result from Last 3 Months [facility] Care Teams Upholstered Goods Crafter Relationship Specialty Start Date End Date Arcenio Pope MD [address] [facility] [address] [place] [address] PCP - General Internal Medicine 12/22/24
--- OUTSIDE RECORDS SUMMARY | 2025-02-23 18:32 | XMS_ITS | Patient Health Record ---
Author Organization [facility] Address [address] [facility] [address] [place] [address] Care Team Providers Care Signals Intelligence Superintendent Name Role Phone KATHRYN MCKINNON Primary Care Provider [phone] Arcenio Pope Unavailable [phone] Antonio Arango Unavailable [phone] Allergies Allergen (clinical drug ingredient) Drug/Non Drug Allergy documented on EMR Reaction Allergy Type Onset Date Status Seasonal IC Unknown Drug Allergy Activ e Results Component Value Reference Range Notes CBC with Diff, Platelet, NLR -[id number] Reviewed date:01/04/2025 09:17:35 AM Interpretation: Performing Lab:[facility], [address] [place] [address], [place], Phone - [phone], Director - Kevin Notes/Report: WBC 8.7 3.4-10.8 [...] 0.0-0.1 x10E3/uL Lipid Panel With LDL/HDL Rat [id number] Reviewed date:01/04/2025 09:17:41 AM Interpretation: Performing Lab:[facility], [address] [facility], [place], Phone - [phone], Director - MDRenee Notes/Report: Cholesterol, Total 144 100-199 mg/dL Triglycerides 143 0-149 mg/dL HDL Cholesterol 60 >39 mg/dL VLDL Cholesterol Martin 24 5-40 mg/dL LDL Chol Calc (NIH) 60 0-99 mg/dL LDL/HDL Ratio 1.0 0.0-3.6 ratio LDL/HDL Ratio Men Women 1/2 Avg.Risk 1.0 1.5 Avg.Risk 3.6 3.2 2X Avg.Risk 6.2 5.0 3X Avg.Risk 8.0 6.1 Comp. Metabolic Panel (13)-3 [id number] Reviewed date:01/04/2025 09:17:48 AM Interpretation: Performing Lab:[facility], [address] [facility], [place], Phone - [phone], Director - Kevin Notes/Report: Glucose 111 70-99 [...] 2 Sebaceous cyst (L72. 3) Referral Organization [facility] Referring Provider First Name Arcenio Referring Provider Last Name Toshia Referring Provider Speciality Internal M edicine Referred Provider Specialty Surgery General Notes Please call the [facility] ent to schedule the appointment, Encounter [...] Encounters Encounter Location Date Provider Diagnosis [address] [address] 11/26/2024 Arcenio Pope Encounter for screen ing for cardiovascular disorders Z13.6 ; Sebaceous cyst L72.3 ; Epidermal cyst L72.0 ; Tobacco dependence F17.200 and Tobacco abuse counseling Z71.[address] [address] 02/17/2025 Antonio Arango [address] [address] 11/29/2024 Arcenio Pope Assessments Encounter Date Diagnosis [...] Date US Soft Tissue Head Neck 11/26/2024 Insurance Providers Payer Name Payer Address Payer Phone Subscriber Number Group Number Insured Name Patient Relationship to Insured Coverage Start Date Coverage End Date Gisele Breaux [address] [place] [address] [id number] Gil Ag Self - patient is the insured Gisele [facility] [address] [place] [address] [id number] Gil Ag Self - patient is the insured Medical (General) History Medical History History ICD Code tobacco dependence Epidermal/sebaceous cyst forehead Surgical History Surgery Date(Month/Year) none
== END 2025-02-23 16:02 | disposition home or self-care (01) ==
LOC: HO.HGS 15:16
PROVIDERS: PCP Internal Medicine; Visit Provider Surgery
DX: D17.0 Benign lipomatous neoplasm of skin and subcutaneous tissue of head, face and neck (principal)
CPT/HCPCS: 99024